=== PATIENT | male | born 1975 | race Caucasian/White ===

== ENCOUNTER 2017-07-31 18:21 | Emergency (ER) | payer MEDICAID ==
[~2017-07-31] VITALS: Ht 177.8 cm; Wt 70.0 kg
[2017-07-31] MEDS ORDERED: CEFTRIAXONE SODIUM 250 MG/VIAL IM ONE (18:45)
[2017-07-31] MEDS ORDERED: IBUPROFEN 600MG TABLET PO ONE (18:45)
[2017-07-31] MEDS ORDERED: AZITHROMYCIN 500 MG TABLET PO ONE (18:45)
[2017-07-31 19:30] VITALS: BP 138/82
[2017-08-06 05:20] LABS: CHLAMYDIA TRACHOMATIS NAA Positive (Negative); NEISSERIA GONORRHOEAE NAA Positive (Negative)
== END 2017-07-31 20:25 | disposition home or self-care (01) ==
LOC: ER 18:21
DX: M54.2 Cervicalgia (principal); M25.512 Pain in left shoulder; N50.89 Other specified disorders of the male genital organs
CPT/HCPCS: 87491; 87591; 96372; 99284; J0696